=== PATIENT | male | born 1995 | race African-American/Black ===

== ENCOUNTER 2016-11-13 13:07 | Emergency (ER) | payer SELFPAY | END 2016-11-13 14:40 | disposition left against medical advice (07) | LOC: ERS 13:07 | DX: Z53.21 Procedure and treatment not carried out due to patient leaving prior to being seen by health care provider (principal) ==

== ENCOUNTER 2017-08-23 01:09 | Emergency (ER) | payer SELFPAY ==
--- NOTE | 2017-08-23 08:04 | RAD ---
RIGHT ANKLE 3 VIEWS: Date: 08/23/17 HISTORY: Right ankle pain. FINDINGS/IMPRESSION: The ankle mortise is maintained. No fracture, dislocation, or bony destruction is identified. POS: [facility]
== END 2017-08-23 02:40 | disposition home or self-care (01) ==
LOC: ERS 01:09
DX: M25.571 Pain in right ankle and joints of right foot (principal); F17.210 Nicotine dependence, cigarettes, uncomplicated

== ENCOUNTER 2017-10-25 22:01 | Emergency (ER) | payer SELFPAY ==
--- NOTE | 2017-10-25 22:30 | RAD ---
SINGLE VIEW OF THE CHEST: 10/25/17 COMPARISON: None. HISTORY: Left sided chest pain. FINDINGS: Single view of the chest shows a normal sized cardiomediastinal silhouette. There is no evidence of c onsolidation, mass, or pleural effusion. The bones are unremarkable. IMPRESSION: No evidence of acute cardiopulmonary disease. POS: [facility]
[2017-10-25 23:44] LABS: #Basophils 0.1 thou/uL (0.0-0.2); #Eosinphils 0.2 thou/uL (0.0-0.7); #Lymphocytes 3.9 thou/uL (1.20-3.40); #Monocytes 1.2 thou/uL (0.11-0.59); #Neutrophils 10.3 thou/uL (1.40-6.50); %Basophils 0.7 % (0.0-1.0); %Monocytes 7.7 % (0.0-10.0); %Neutrophils 65.6 % (42.0-75.0); Hemoglobin 15.2 g/dL (14.0-18.0); Mean Corpuscular HGB CONC 34.3 g/dL (32.0-36.0); Mean Corpuscular Volume 93.3 fL (78.0-98.0); Mean Platelet Volume 8.1 fL (7.4-10.4); Platelet Count 342 thou/uL (130-400); Red Blood Cell (RBC) Count 4.75 mill/uL (4.70-6.10); White Blood Cell (WBC) Count 15.7 thou/uL (4.8-10.8)
[2017-10-26 00:06] LABS: ALT (SGPT) 21 U/L (8-55); AST (SGOT) 26 U/L (5-34); Albumin 4.6 g/dL (3.5-5.0); Alkaline Phosphatase 139 U/L (40-150); Anion Gap 16 mmol/L (10-20); BUN (Urea Nitrogen) 10 mg/dL (8.9-20.6); Bilirubin, Total 0.6 mg/dL (0.2-1.2); CK (CPK) 443 U/L (30-200); Calc. Creatinine Clearance 0 mL/min (70-130); Calcium 9.6 mg/dL (7.8-10.44); Carbon Dioxide 20 mmol/L (22-29); Chloride 105 mmol/L (98-107); Estimated GFR-MDRD Greater than 90; Globulin 4.2 g/dL (2.4-3.5); Glucose 79 mg/dL (70-105); Lipase 20 U/L (8-78); Potassium 3.8 mmol/L (3.5-5.1); Protein, Total 8.8 g/dL (6.0-8.3); Sodium 137 mmol/L (136-145)
[2017-10-26 00:09] LABS: Troponin I Less than 0.010 ng/mL (< 0.028)
[2017-10-26] MEDS ORDERED: Mag-Al 1200 mg/1200 mg/30 ML UDCUP ONE (00:23)
[2017-10-26] MEDS ORDERED: Ketorolac Tromethamine 30 MG/ML VIAL ONE (00:23)
[2017-10-26] MEDS ORDERED: Lidocaine Viscous Sol 2% 15 ml UD Cup ONE (00:23)
== END 2017-10-26 01:32 | disposition left against medical advice (07) ==
LOC: ERS 22:01
DX: R07.89 Other chest pain (principal); F17.210 Nicotine dependence, cigarettes, uncomplicated
CPT/HCPCS: 36415; 71045; 80053; 82550; 82553; 83690; 84484; 85025; 93005; 96372; J1885

== ENCOUNTER 2018-02-17 12:47 | Emergency (ER) | payer SELFPAY ==
[2018-02-17] MEDS ORDERED: Ketorolac Tromethamine 60 MG/2 ML VIAL ONE (14:01)
[2018-02-17] MEDS ORDERED: Ketorolac Tromethamine 30 MG/ML VIAL ONE (15:29)
--- NOTE | 2018-02-17 16:07 | RAD ---
RIGHT SHOULDER THREE VIEWS: 02/17/18 HISTORY: Pain. Injury. COMPARISON: None. FINDINGS: Glenohumeral joint space is preserved. No fracture or dislocation. The visualized right ribs are unre markable. IMPRESSION: No fracture or dislocation. POS: [facility]
--- NOTE | 2018-02-17 16:08 | RAD ---
THREE VIEWS THORACIC SPINE: 02/17/18 HISTORY: Pain after injury. FINDINGS: There is no evidence of a fracture or subluxation involving the thoracic spine. Vertebral body height s are within normal limits. IMPRESSION: No fracture or subluxation is seen involving the thoracic spine. POS: [facility]
== END 2018-02-17 15:42 | disposition home or self-care (01) ==
LOC: ERS 12:47
DX: S43.401A Unspecified sprain of right shoulder joint, initial encounter (principal); F17.210 Nicotine dependence, cigarettes, uncomplicated; Z71.6 Tobacco abuse counseling; W19.XXXA Unspecified fall, initial encounter
CPT/HCPCS: 72072; 96372; 99406; J1885

== ENCOUNTER 2018-09-14 20:40 | Emergency (ER) | payer SELFPAY | END 2018-09-14 21:13 | disposition home or self-care (01) | LOC: ERS 20:40 | DX: B86 Scabies (principal); F17.210 Nicotine dependence, cigarettes, uncomplicated | CPT/HCPCS: 99282 ==

== ENCOUNTER 2018-11-07 21:02 | Emergency (ER) | payer SELFPAY ==
--- NOTE | 2018-11-07 21:35 | RAD ---
Exam:Right shoulder 3 views HISTORY: Pain COMPARISON: 02/17/2018 FINDINGS: Glenohumeral joint space is preserved. Acromioclavicular and coracoclavicular distances are maintained. No fracture or dislocation. Visualized right ribs are intact IMPRESSION: No fracture or dislocation.
== END 2018-11-07 21:54 | disposition home or self-care (01) ==
LOC: ERS 21:02
DX: S43.401A Unspecified sprain of right shoulder joint, initial encounter (principal); F17.210 Nicotine dependence, cigarettes, uncomplicated; X58.XXXA Exposure to other specified factors, initial encounter

== ENCOUNTER 2018-11-09 10:46 | Emergency (ER) | payer SELFPAY | END 2018-11-09 11:25 | disposition home or self-care (01) | LOC: ERS 10:46 | DX: M25.511 Pain in right shoulder (principal); F17.210 Nicotine dependence, cigarettes, uncomplicated; Z79.899 Other long term (current) drug therapy | CPT/HCPCS: 99283 ==

== ENCOUNTER 2018-11-17 12:54 | Emergency (ER) | payer SELFPAY | END 2018-11-17 13:41 | disposition home or self-care (01) | LOC: ERS 12:54 | DX: R11.0 Nausea (principal); F17.210 Nicotine dependence, cigarettes, uncomplicated; Z79.899 Other long term (current) drug therapy | CPT/HCPCS: 99282 ==

== ENCOUNTER 2018-11-24 18:32 | Emergency (ER) | payer SELFPAY | END 2018-11-24 18:50 | disposition home or self-care (01) | LOC: ERS 18:32 | DX: R25.2 Cramp and spasm (principal); F17.210 Nicotine dependence, cigarettes, uncomplicated | CPT/HCPCS: 99281 ==

== ENCOUNTER 2019-02-05 11:25 | Emergency (ER) | payer OTHER, SELFPAY | END 2019-02-05 19:37 | disposition home or self-care (01) | LOC: ERS 11:25 | DX: R50.9 Fever, unspecified (principal); R11.2 Nausea with vomiting, unspecified; F17.210 Nicotine dependence, cigarettes, uncomplicated | CPT/HCPCS: 87804; 99284 ==

== ENCOUNTER 2019-04-03 11:57 | Emergency (ER) | payer SELFPAY ==
[2019-04-03] MEDS ORDERED: Ibuprofen 800 MG TAB ONE (12:18)
[2019-04-03] MEDS ORDERED: Acetaminophen 500 MG TAB ONE (12:18)
== END 2019-04-03 12:26 | disposition left against medical advice (07) ==
LOC: ERS 11:57
DX: Z53.21 Procedure and treatment not carried out due to patient leaving prior to being seen by health care provider (principal)
CPT/HCPCS: 87081; 87430; 87804

== ENCOUNTER 2020-03-04 07:10 | Emergency (ER) | payer SELFPAY ==
[2020-03-04] MEDS ORDERED: Ondansetron PF 4 MG/2 ML Vial ONE (07:22)
[2020-03-04] MEDS ORDERED: Promethazine HCl 25 MG/ML VIAL ONE (07:41)
[2020-03-04] MEDS ORDERED: Ketorolac Tromethamine 30 MG/ML VIAL ONE (07:41)
[2020-03-04 07:55] LABS: Hemoglobin 15.4 g/dL (14.0-18.0); Mean Corpuscular HGB CONC 34.3 g/dL (32.0-36.0); Mean Corpuscular Hemoglobin 31.4 pg (27.0-31.0); Mean Corpuscular Volume 91.5 fL (78.0-98.0); Mean Platelet Volume 8.1 fL (7.4-10.4); Platelet Count 338 thou/uL (130-400); RBC Distribution Width 12.9 % (11.5-14.5); Red Blood Cell (RBC) Count 4.92 mill/uL (4.70-6.10); White Blood Cell (WBC) Count 25.5 thou/uL (4.8-10.8)
[2020-03-04 08:06] LABS: ALT (SGPT) 19 U/L (8-55); AST (SGOT) 19 U/L (5-34); Albumin 4.3 g/dL (3.5-5.0); Alkaline Phosphatase 116 U/L (40-110); Anion Gap 20 mmol/L (10-20); BUN (Urea Nitrogen) 17 mg/dL (8.9-20.6); Calc. Creatinine Clearance 0 mL/min (70-130); Calcium 9.2 mg/dL (7.8-10.44); Carbon Dioxide 18 mmol/L (22-29); Chloride 103 mmol/L (98-107); Glucose 97 mg/dL (70-105); Lipase 18 U/L (8-78); Potassium 3.7 mmol/L (3.5-5.1); Protein, Total 8.3 g/dL (6.0-8.3); Sodium 137 mmol/L (136-145)
--- NOTE | 2020-03-04 08:11 | CT ---
CT ABDOMEN AND PELVIS WITH IV CONTRAST 03/04/2020 CLINICAL INFORMATION: Abdominal pain and vomiting. Abdominal pain started in lower abdomen and is now more generalized. COMPARISON: 01/03/2016 Technique: Multiple contiguous axial CT images are obtained through the abdomen and pelvis with IV contrast. Cor onal reformatted images are provided. FINDINGS: Lower Chest: Lung bases are clear. Vessels: Abdominal aorta is normal in caliber. Abdomen: Portal vein:Patent Gallbladder: Within normal limits for CT imaging. Liver: There is a vague area of enhancement seen in the medial segment of the left hepatic lobe measu ring 2.1 cm. This is difficult to further characterize on this exam. This does not visualized on prior exam. Spleen: within normal limits. Pancreas: within normal limits. Adrenals: within normal limits. Kidneys: within normal limits. Bowel: Normal caliber. Appendix: Large appendicolith is seen in the proximal appendix which was also seen on prior exam. The appendix is otherwise normal in caliber without periappendiceal inflammatory changes seen. Peritoneum: No ascites or free air; no fluid collection. Mesentery and Retroperitoneum: No enlarged mesenteric or retroperitoneal lymph nodes. Abdominal Wall: within normal limits. Pelvis: Reproductive Organs: No pelvic masses. Bladder: within normal limits. Bones: No suspicious lytic or sclerotic osseous lesions. IMPRESSION: 1. Vague ill-defined area of enhancement in the medial segment left hepatic lobe. Follow-up CT abdome n with and without IV contrast following hepatic mass protocol is recommended for further evaluation. This was not visualized on study in 2015. 2. No acute findings in the abdomen or pelvis.
[2020-03-04 08:42] LABS: Band 3 % (5-11); Lymphocytes 11 % (21-51); MDiff Complete? YES; Monocytes 4 % (0-10); Neutrophil 81 % (42-75); Platelet Morphology Comment Appears Adequate; RBC Morphology Normal; Reactive Lymphocytes 1 % (0-10)
[2020-03-04] MEDS ORDERED: Iopamidol-370 76% 500 ML 1 ML ONE (13:53)
== END 2020-03-04 09:25 | disposition home or self-care (01) ==
LOC: ERS 07:10
DX: R11.2 Nausea with vomiting, unspecified (principal); R10.9 Unspecified abdominal pain
CPT/HCPCS: 36415; 74177; 80053; 83690; 85025; 96365; 96375; J1885; J2405; J2550; Q9967

== ENCOUNTER 2022-01-11 13:38 | Emergency (ER) | payer SELFPAY ==
[2022-01-11 16:38] LABS: SARS-CoV-2 NAA Rapid Test Not Detected (NotDetected)
== END 2022-01-11 16:59 | disposition home or self-care (01) ==
LOC: ERS 13:38
DX: H66.91 Otitis media, unspecified, right ear (principal); F17.210 Nicotine dependence, cigarettes, uncomplicated; Z20.822 Contact with and (suspected) exposure to COVID-19
CPT/HCPCS: 99283

== ENCOUNTER 2022-06-17 09:37 | Emergency (ER) | payer SELFPAY | END 2022-06-17 11:58 | disposition home or self-care (01) | LOC: ERS 09:37 | DX: J06.9 Acute upper respiratory infection, unspecified (principal); Z20.822 Contact with and (suspected) exposure to COVID-19; Z87.891 Personal history of nicotine dependence | CPT/HCPCS: 99283; U0003; U0005 ==

== ENCOUNTER 2023-02-02 21:21 | Emergency (ER) | payer BC, SELFPAY ==
[2023-02-02] MEDS ORDERED: Ketorolac Tromethamine 30 MG/ML VIAL ONE (22:16)
== END 2023-02-02 22:35 | disposition home or self-care (01) ==
LOC: ERS 21:21
DX: H66.001 Acute suppurative otitis media without spontaneous rupture of ear drum, right ear (principal); F17.210 Nicotine dependence, cigarettes, uncomplicated
CPT/HCPCS: 96372; 99282; J1885

== ENCOUNTER 2023-04-19 07:23 | Inpatient (IN) | payer BC, MEDICAID, SELFPAY ==
[2023-04-19] MEDS ORDERED: Sodium Chloride 0.9% 100 ML ONE (07:37)
[2023-04-19] MEDS ORDERED: Morphine 4 MG/ML VIAL ONE (07:37)
[2023-04-19] MEDS ORDERED: Bupivacaine PF 0.5% 30 ML VIAL ONE (07:37)
[2023-04-19] MEDS ORDERED: Ondansetron PF 4 MG/2 ML Vial ONE ×2 (07:37→13:18)
[2023-04-19] MEDS ORDERED: CEFAZOLIN 2 GM VIAL ONE (07:37)
[2023-04-19] MEDS ORDERED: Boostrix 0.5 ML (Tdap) VIAL (>/=7 yrs of age) ONE (07:56)
[2023-04-19 08:01] LABS: #Basophils 0.1 thou/uL (0.0-0.2); #Eosinphils 0.1 thou/uL (0.0-0.7); #Neutrophils 8.3 thou/uL (1.40-6.50); %Basophils 0.4 % (0.0-1.0); %Eosinophils 0.9 % (0.0-10.0); %Lymphocytes 29.5 % (21.0-51.0); %Monocytes 7.6 % (0.0-10.0); %Neutrophils 60.6 % (42.0-75.0); Hematocrit 43.9 % (42.0-52.0); Hemoglobin 14.5 g/dL (14.0-18.0); Mean Corpuscular Hemoglobin 30.1 pg (27.0-31.0); Mean Corpuscular Volume 91.3 fl (78.0-98.0); Mean Platelet Volume 10.3 fL (7.4-10.4); Platelet Count 271 10x3/uL (130-400); RBC Distribution Width 14.3 % (11.5-14.5); Red Blood Cell (RBC) Count 4.81 mill/uL (4.70-6.10); White Blood Cell (WBC) Count 13.8 10x3/uL (4.8-10.8)
[2023-04-19 08:13] LABS: ALT (SGPT) 31 U/L (8-55); AST (SGOT) 20 U/L (5-34); Albumin 3.7 g/dL (3.5-5.0); Alkaline Phosphatase 94 U/L (40-110); Anion Gap 11 mmol/L (10-20); BUN (Urea Nitrogen) 15 mg/dL (8.9-20.6); Bilirubin, Total 0.5 mg/dL (0.2-1.2); Calc. Creatinine Clearance 0 mL/min (70-130); Calcium 8.8 mg/dL (7.8-10.44); Carbon Dioxide 24 mmol/L (22-29); Chloride 107 mmol/L (98-107); Estimated GFR 120; Globulin 2.7 g/dL (2.4-3.5); Glucose 102 mg/dL (70-105); Protein, Total 6.4 g/dL (6.0-8.3); Sodium 138 mmol/L (136-145)
[2023-04-19] MEDS ORDERED: Gentamicin 80 MG/2 ML VIAL ONE (08:54)
[2023-04-19] MEDS ORDERED: Vancomycin 1 GM VIAL ONE (12:56)
[2023-04-19] MEDS ORDERED: Bacitracin Zinc Ointment 30 gm TUBE ONE (12:56)
[2023-04-19] MEDS ORDERED: fentaNYL 50 mcg/mL 1 mL Vial ONE ×3 (13:07→15:11)
[2023-04-19] MEDS ORDERED: SUCCINYLCHOLINE/SOD CL,ISO/PF 200 MG/10 ML SYRINGE FS ONE (13:18)
[2023-04-19] MEDS ORDERED: Lidocaine 2% PF 5 ML VIAL ONE (13:18)
[2023-04-19] MEDS ORDERED: Dexamethasone 20 MG/5 ML VIAL ONE (13:18)
[2023-04-19] MEDS ORDERED: fentaNYL PF 100 MCG/2 ML SYRINGE ONE (13:18)
[2023-04-19] MEDS ORDERED: Rocuronium Bromide 10 MG/ML (10ML VIAL) ONE (13:18)
[2023-04-19] MEDS ORDERED: PROPOFOL 20 ML ONE (13:18)
[2023-04-19] MEDS ORDERED: CEFAZOLIN 1 GM VIAL ONE (13:36)
[2023-04-19] MEDS ORDERED: SUGAMMADEX SODIUM 200 MG/2 ML VIAL ONE (14:17)
[2023-04-19] MEDS ORDERED: Acetaminophen 325 MG TAB PO PRN (14:53)
[2023-04-19] MEDS ORDERED: Ondansetron PF 4 MG/2 ML Vial SLOW IVP PRN (14:53)
[2023-04-19] MEDS ORDERED: traMADol HCl 50 MG TAB PO PRN (14:53)
[2023-04-19] MEDS ORDERED: Communication Order-Pharmacy FS SCH (15:00)
[2023-04-19] MEDS: TETANUS, DIPHTHERIA TOX,ADULT (TDVAX) 0.5 ML VIAL IM ONE (15:32)
[2023-04-19 15:40] VITALS: BMI 35.9
[2023-04-19] MEDS: FLU VACC QS2023-24(6MOS UP)/PF 60 MCG/0.5 ML SYRINGE IM ONE (16:04)
[2023-04-19] MEDS: Hetastarch 6% 500 ML 500 ML IVPB SCH (17:09)
[2023-04-19] MEDS: Aspirin 81 mg Enteric Coated Tablet PO SCH (21:13)
[2023-04-19] MEDS: CEFAZOLIN 2 GM in Sodium Chloride 0.9% 100 ML IVPB SCH (21:13)
[2023-04-20] MEDS: Morphine 4 MG/ML VIAL SLOW IVP PRN (05:53)
[2023-04-20 07:24] LABS: #Monocytes 0.8 thou/uL (0.11-0.59); #Neutrophils 11.9 thou/uL (1.40-6.50); %Basophils 0.1 % (0.0-1.0); %Lymphocytes 9.1 % (21.0-51.0); %Monocytes 5.8 % (0.0-10.0); %Neutrophils 84.6 % (42.0-75.0); Hematocrit 35.7 % (42.0-52.0); Hemoglobin 11.7 g/dL (14.0-18.0); Mean Corpuscular HGB CONC 32.8 g/dL (32.0-36.0); Mean Corpuscular Hemoglobin 30.2 pg (27.0-31.0); Mean Platelet Volume 10.2 fL (7.4-10.4); Platelet Count 245 10x3/uL (130-400); RBC Distribution Width 14.4 % (11.5-14.5); Red Blood Cell (RBC) Count 3.88 mill/uL (4.70-6.10)
[2023-04-20] MEDS: HYDROcodone/Acetaminophen 10/325 mg Tablet PO PRN (12:02)
[2023-04-20] MEDS ORDERED: Bacitracin Zinc Ointment 30 gm TUBE ONE (12:29)
[2023-04-20] MEDS ORDERED: Thrombin 5000 UNITS/5 ML VIAL ONE (12:29)
[2023-04-20] MEDS ORDERED: Bupivacaine PF 0.5% 30 ML VIAL ONE (12:29)
[2023-04-20] MEDS ORDERED: CEFAZOLIN 2 GM VIAL ONE (13:05)
[2023-04-20] MEDS ORDERED: Sodium Chloride 0.9% 100 ML ONE (13:05)
[2023-04-20] MEDS ORDERED: Famotidine/PF 20 mg/2ml Vial ONE (13:06)
[2023-04-20] MEDS ORDERED: Lidocaine 1% PF 5 ML VIAL ONE (13:11)
[2023-04-20] MEDS ORDERED: Rocuronium Bromide 10 MG/ML (10ML VIAL) ONE (13:11)
[2023-04-20] MEDS ORDERED: fentaNYL PF 100 MCG/2 ML SYRINGE ONE (13:11)
[2023-04-20] MEDS ORDERED: PROPOFOL 20 ML ONE (13:11)
[2023-04-20] MEDS ORDERED: Meperidine HCl/PF 25 MG (1 mL) VIAL IM PRN (13:25)
[2023-04-20] MEDS ORDERED: Dexamethasone 4 mg/ml Vial ONE (13:39)
[2023-04-20] MEDS ORDERED: Lidocaine 2% PF 5 ML VIAL ONE (15:15)
[2023-04-20] MEDS ORDERED: Heparin 10,000 UNITS/ 10 ML VIAL ONE ×2 (15:15→16:49)
[2023-04-20] MEDS ORDERED: Hetastarch 6% 500 ML 500 ML ONE (15:15)
[2023-04-20] MEDS ORDERED: Ondansetron HCl/PF 4 MG/2 ML Vial IVP PRN (15:29)
[2023-04-20] MEDS ORDERED: HYDROmorphone 2 MG/ML VIAL SLOW IVP PRN (15:29)
[2023-04-20] MEDS ORDERED: Meperidine HCl/PF 25 MG/ML VIAL SLOW IVP PRN (15:29)
[2023-04-20] MEDS ORDERED: Promethazine HCl 25 MG/ML VIAL IM PRN (15:29)
[2023-04-20] MEDS ORDERED: Morphine Sulfate 2 MG/ML SYRINGE SLOW IVP PRN (15:29)
[2023-04-20] MEDS ORDERED: HYDROmorphone 2 MG/ML VIAL ONE (16:43)
[2023-04-20] MEDS ORDERED: Heparin 5,000 UNITS/ML VIAL ONE (17:36)
[2023-04-20] MEDS ORDERED: Mineral Oil Sterile 10 ML VIAL ONE (17:55)
[2023-04-20] MEDS ORDERED: CEFAZOLIN 1 GM VIAL ONE ×2 (18:06)
[2023-04-20 18:22] LABS: PTT Greater than 250.0 sec (22.9-36.1)
[2023-04-20] MEDS ORDERED: Glycopyrrolate 0.2 MG/ML 5 ML SYRINGE ONE (18:34)
[2023-04-20] MEDS ORDERED: Dexamethasone 20 MG/5 ML VIAL ONE (18:34)
[2023-04-20] MEDS ORDERED: NEOSTIGMINE 3 MG/3 ML SYR 3 MG/3 ML SYRINGE ONE (18:34)
[2023-04-20] MEDS ORDERED: Ondansetron PF 4 MG/2 ML Vial ONE (18:34)
[2023-04-20] MEDS ORDERED: Ketorolac Tromethamine 30 MG (1 mL) VIAL ONE (19:01)
[2023-04-20] MEDS ORDERED: fentaNYL 50 mcg/mL 1 mL Vial ONE ×2 (19:37→19:50)
[2023-04-20] MEDS ORDERED: Morphine 4 MG/ML VIAL ONE (20:19)
[2023-04-21 06:23] LABS: #Monocytes 1.2 thou/uL (0.11-0.59); #Neutrophils 16.7 thou/uL (1.40-6.50); %Basophils 0.1 % (0.0-1.0); %Lymphocytes 6.3 % (21.0-51.0); %Monocytes 6.4 % (0.0-10.0); %Neutrophils 86.5 % (42.0-75.0); Hematocrit 36.7 % (42.0-52.0); Hemoglobin 12.1 g/dL (14.0-18.0); Mean Corpuscular Hemoglobin 30.3 pg (27.0-31.0); Mean Corpuscular Volume 91.8 fl (78.0-98.0); Mean Platelet Volume 10.8 fL (7.4-10.4); Platelet Count 246 10x3/uL (130-400); RBC Distribution Width 14.6 % (11.5-14.5); White Blood Cell (WBC) Count 19.3 10x3/uL (4.8-10.8)
[2023-04-21 06:33] LABS: INR-International Normal Ratio 1.1; PTT 24.4 sec (22.9-36.1); Prothrombin Time 14.6 sec (12.0-14.7)
[2023-04-21 06:38] LABS: Anion Gap 14 mmol/L (10-20); BUN (Urea Nitrogen) 12 mg/dL (8.9-20.6); Calc. Creatinine Clearance 223 mL/min (70-130); Calcium 7.9 mg/dL (7.8-10.44); Carbon Dioxide 21 mmol/L (22-29); Chloride 107 mmol/L (98-107); Estimated GFR 124; Glucose 103 mg/dL (70-105); Potassium 4.2 mmol/L (3.5-5.1); Sodium 138 mmol/L (136-145)
[2023-04-21 20:42] LABS: #Monocytes 1.5 thou/uL (0.11-0.59); #Neutrophils 15.1 thou/uL (1.40-6.50); %Basophils 0.2 % (0.0-1.0); %Eosinophils 0.1 % (0.0-10.0); %Lymphocytes 13.9 % (21.0-51.0); %Monocytes 7.6 % (0.0-10.0); %Neutrophils 77.3 % (42.0-75.0); Hematocrit 37.5 % (42.0-52.0); Hemoglobin 12.1 g/dL (14.0-18.0); Mean Corpuscular HGB CONC 32.3 g/dL (32.0-36.0); Mean Corpuscular Hemoglobin 30.1 pg (27.0-31.0); Mean Corpuscular Volume 93.3 fl (78.0-98.0); Mean Platelet Volume 10.4 fL (7.4-10.4); Platelet Count 291 10x3/uL (130-400); RBC Distribution Width 14.6 % (11.5-14.5); Red Blood Cell (RBC) Count 4.02 mill/uL (4.70-6.10); White Blood Cell (WBC) Count 19.5 10x3/uL (4.8-10.8)
[2023-04-22 04:55] LABS: #Monocytes 1.3 thou/uL (0.11-0.59); #Neutrophils 9.9 thou/uL (1.40-6.50); %Basophils 0.2 % (0.0-1.0); %Eosinophils 0.3 % (0.0-10.0); %Lymphocytes 23.3 % (21.0-51.0); %Neutrophils 66.4 % (42.0-75.0); Hematocrit 32.9 % (42.0-52.0); Mean Corpuscular HGB CONC 33.4 g/dL (32.0-36.0); Mean Corpuscular Hemoglobin 31.3 pg (27.0-31.0); Mean Corpuscular Volume 93.7 fl (78.0-98.0); Mean Platelet Volume 10.4 fL (7.4-10.4); Platelet Count 248 10x3/uL (130-400); RBC Distribution Width 14.6 % (11.5-14.5); Red Blood Cell (RBC) Count 3.51 mill/uL (4.70-6.10); White Blood Cell (WBC) Count 14.9 10x3/uL (4.8-10.8)
[2023-04-22] MEDS: Aspirin 81 mg Enteric Coated Tablet PO SCH (08:14)
[2023-04-22 08:45] VITALS: BP 121/76; TEMP 97.9
[2023-04-22 13:36] LABS: #Basophils 0.1 thou/uL (0.0-0.2); #Eosinphils 0.1 thou/uL (0.0-0.7); #Monocytes 1.1 thou/uL (0.11-0.59); #Neutrophils 11.3 thou/uL (1.40-6.50); %Basophils 0.4 % (0.0-1.0); %Eosinophils 0.5 % (0.0-10.0); %Lymphocytes 25.4 % (21.0-51.0); %Monocytes 6.4 % (0.0-10.0); %Neutrophils 66.7 % (42.0-75.0); Hematocrit 36.7 % (42.0-52.0); Hemoglobin 12.2 g/dL (14.0-18.0); Mean Corpuscular HGB CONC 33.2 g/dL (32.0-36.0); Mean Corpuscular Hemoglobin 30.9 pg (27.0-31.0); Mean Corpuscular Volume 92.9 fl (78.0-98.0); Platelet Count 294 10x3/uL (130-400); RBC Distribution Width 14.5 % (11.5-14.5); Red Blood Cell (RBC) Count 3.95 mill/uL (4.70-6.10)
== END 2023-04-22 14:00 | disposition home or self-care (01) | DRG 578 ==
LOC: ERS 07:23 → T4-A 10:43
PROVIDERS: ADMIT Orthopaedic Surgery Hand Surgery; ATTEND Orthopaedic Surgery Hand Surgery
PROC: 0PBV0ZZ Excision of Left Finger Phalanx, Open Approach (ICD-10-PCS; principal; 2023-04-19)
PROC: 0RGX07Z Fusion of Left Finger Phalangeal Joint with Autologous Tissue Substitute, Open Approach (ICD-10-PCS; 2023-04-20)
PROC: 0HRGXK3 Replacement of Left Hand Skin with Nonautologous Tissue Substitute, Full Thickness, External Approach (ICD-10-PCS; 2023-04-20)
PROC: 01Q60ZZ Repair Radial Nerve, Open Approach (ICD-10-PCS; 2023-04-20)
PROC: 03QC0ZZ Repair Left Radial Artery, Open Approach (ICD-10-PCS; 2023-04-20)
DX: S61.235A Puncture wound without foreign body of left ring finger without damage to nail, initial encounter (principal); S64.493A Injury of digital nerve of left middle finger, initial encounter; S61.233A Puncture wound without foreign body of left middle finger without damage to nail, initial encounter; W32.0XXA Accidental handgun discharge, initial encounter
CPT/HCPCS: 36415; 36416; 80048; 80053; 85025; 85610; 85730; 86850; 86900; 86901; 90715; 96361; 96365; 96367; 96375; C1713; C1894; G0390; J0665; J0690; J1100; J1170; J1580; J1644; J1885; J2001; J2270; J2405; J2704; J3010; J3370; J3490; Q4104; S0028

== ENCOUNTER 2023-07-28 10:58 | Outpatient (CLI) | payer OTHER ==
[2023-07-28 13:08] LABS: #Basophils 0.05 10x3/uL (0.0-0.2); #Eosinphils 0.08 10x3/uL (0.0-0.5); #Monocytes 0.86 10x3/uL (0.0-1.1); #Neutrophils 5.78 10x3/uL (1.5-8.4); %Basophils 0.5 % (0.0-2.0); %Eosinophils 0.9 % (0.0-6.0); %Lymphocytes 25.9 % (18.0-47.0); %Monocytes 9.3 % (0.0-10.0); %Neutrophils 62.9 % (40.0-75.0); Hematocrit 42.6 % (38.8-50.0); Hemoglobin 14.4 g/dL (13.5-17.5); Mean Corpuscular HGB CONC 33.8 g/dL (32.0-36.0); Mean Corpuscular Hemoglobin 30.3 pg (27.0-33.0); Mean Corpuscular Volume 89.5 fL (81.2-95.1); Mean Platelet Volume 11.4 fL (7.4-10.4); Platelet Count 326 10x3/uL (150-450); RBC Distribution Width 14.3 % (11.5-14.5); Red Blood Cell (RBC) Count 4.76 10x6/uL (4.32-5.72); White Blood Cell (WBC) Count 9.2 10x3/uL (3.5-10.5)
== END 2023-07-28 10:59 | disposition home or self-care (01) ==
LOC: LABBT 10:58
PROVIDERS: ATTEND Orthopaedic Surgery Hand Surgery
DX: Z01.812 Encounter for preprocedural laboratory examination (principal); S61.203A Unspecified open wound of left middle finger without damage to nail, initial encounter
CPT/HCPCS: 85025

== ENCOUNTER 2023-11-16 14:17 | Emergency (ER) | payer OTHER ==
[2023-11-16 15:58] LABS: #Basophils 0.05 10x3/uL (0.0-0.2); %Basophils 0.4 % (0.0-1.0); %Eosinophils 0.6 % (0.0-10.0); %Lymphocytes 20.4 % (21.0-51.0); %Monocytes 7.6 % (0.0-10.0); %Neutrophils 70.2 % (42.0-75.0); Hematocrit 42.3 % (42.0-52.0); Mean Corpuscular HGB CONC 33.1 g/dL (32.0-36.0); Mean Corpuscular Hemoglobin 30.4 pg (27.0-31.0); Mean Platelet Volume 10.2 fL (7.4-10.4); Platelet Count 348 10x3/uL (130-400); RBC Distribution Width 14.5 % (11.5-14.5)
[2023-11-16 16:12] LABS: ALT (SGPT) 19 U/L (8-55); AST (SGOT) 17 U/L (5-34); Alkaline Phosphatase 110 U/L (40-110); Anion Gap 14 mmol/L (10-20); BUN (Urea Nitrogen) 16 mg/dL (8.9-20.6); Bilirubin, Total 0.4 mg/dL (0.2-1.2); Calc. Creatinine Clearance 0 mL/min (70-130); Calcium 9.5 mg/dL (7.8-10.44); Carbon Dioxide 21 mmol/L (22-29); Chloride 108 mmol/L (98-107); Estimated GFR 95; Globulin 3.7 g/dL (2.4-3.5); Glucose 91 mg/dL (70-105); Potassium 3.9 mmol/L (3.5-5.1); Protein, Total 7.7 g/dL (6.0-8.3); Sodium 139 mmol/L (136-145)
[2023-11-16] MEDS ORDERED: Acetaminophen 500 MG TAB ONE (16:38)
== END 2023-11-16 17:22 | disposition home or self-care (01) ==
LOC: ERS 14:17
DX: M79.645 Pain in left finger(s) (principal); F17.210 Nicotine dependence, cigarettes, uncomplicated
CPT/HCPCS: 36415; 80053; 83605; 85025; 86141; 99283

== ENCOUNTER 2024-04-06 05:53 | Day surgery (SDC) | payer OTHER ==
[2024-04-05 08:22] VITALS: BMI 35.2
[2024-04-06] MEDS ORDERED: Midazolam HCl 2 mg/2 ml Vial ONE (08:48)
[2024-04-06] MEDS ORDERED: Bupivacaine PF 0.5% 30 ML VIAL ONE ×2 (08:56→09:45)
[2024-04-06] MEDS ORDERED: Bacitracin Zinc Ointment 30 gm TUBE ONE (08:56)
[2024-04-06] MEDS ORDERED: CEFAZOLIN 2 GM VIAL ONE (09:17)
[2024-04-06] MEDS ORDERED: PROPOFOL 200 MG/20 ML VIAL ONE (09:34)
[2024-04-06] MEDS ORDERED: Lidocaine 1% PF 5 ML VIAL ONE (09:34)
[2024-04-06] MEDS ORDERED: Ondansetron PF 4 MG/2 ML Vial ONE (09:34)
[2024-04-06] MEDS ORDERED: Ketorolac Tromethamine 30 MG (1 mL) VIAL ONE (11:57)
== END 2024-04-06 14:25 | disposition home or self-care (01) ==
LOC: SDC 05:53
PROVIDERS: ATTEND Orthopaedic Surgery Hand Surgery
PROC: 0X6T0Z2 Detachment at Left Ring Finger, Mid, Open Approach (ICD-10-PCS; principal; 2024-04-06)
DX: S62.63 Displaced fracture of distal phalanx of finger (principal); S62.625K Displaced fracture of middle phalanx of left ring finger, subsequent encounter for fracture with nonunion; F17.200 Nicotine dependence, unspecified, uncomplicated
CPT/HCPCS: J0665; J1885; J2250

== ENCOUNTER 2024-12-26 19:37 | Inpatient (IN) | payer OTHER ==
[~2024-12-26 19:37] MED LIST: Iopamidol-370 76% 500 ML MDV (1 ML CHARGE) ONE
[2024-12-26] MEDS ORDERED: Ondansetron PF 4 MG/2 ML Vial ONE (20:43)
[2024-12-26] MEDS ORDERED: Ketorolac Tromethamine 30 MG (1 mL) VIAL ONE (20:43)
[2024-12-26 21:13] LABS: ALT (SGPT) 25 U/L (Less than 45); AST (SGOT) 29 U/L (11-34); Albumin 4.3 g/dL (3.1-4.5); Alkaline Phosphatase 101 U/L (40-110); Anion Gap 15 mmol/L (10-20); BUN (Urea Nitrogen) 15 mg/dL (8.9-20.6); Bilirubin, Total 0.8 mg/dL (0.3-1.2); Calc. Creatinine Clearance 0 mL/min (70-130); Calcium 9.3 mg/dL (7.8-10.44); Carbon Dioxide 20 mmol/L (22-29); Chloride 104 mmol/L (98-107); Globulin 3.9 g/dL (2.4-3.5); Glucose 98 mg/dL (70-105); Lipase 23 U/L (8-78); Potassium 3.8 mmol/L (3.5-5.1); Sodium 135 mmol/L (136-145)
[2024-12-26 21:21] LABS: #Basophils Less than 0.03 10x3/uL (0.0-0.2); #Eosinophils 0.03 10x3/uL (0.0-0.7); #Monocytes 0.71 10x3/uL (0.11-0.59); #Neutrophils 13.58 10x3/uL (1.40-6.50); %Basophils 0.1 % (0.0-1.0); %Eosinophils 0.2 % (0.0-10.0); %Lymphocytes 3.5 % (21.0-51.0); %Monocytes 4.8 % (0.0-10.0); %Neutrophils 91.1 % (42.0-75.0); Hematocrit 43.0 % (42.0-52.0); Hemoglobin 14.2 g/dL (14.0-18.0); Mean Corpuscular Hemoglobin 29.3 pg (27.0-31.0); Mean Corpuscular Volume 88.7 fL (78.0-98.0); Platelet Count 319 10x3/uL (130-400); Red Blood Cell (RBC) Count 4.85 mill/uL (4.70-6.10); White Blood Cell (WBC) Count 14.91 10x3/uL (4.8-10.8)
[2024-12-26 22:30] LABS: Bacteria/HPF None Seen HPF (None Seen); Glucose, Urine (Dipstick) Normal (Negative); Leukocyte Negative Leu/uL (Negative); Protein, Urine (Dipstick) 10 mg/dL (Neg-Trace); RBC/HPF 0-3 HPF (0-3); WBC/HPF None Seen HPF (0-3)
[2024-12-26 22:32] LABS: Specific Gravity, Urine Greater than 1.036 (1.002-1.036)
[2024-12-26] MEDS ORDERED: Ondansetron PF 4 MG/2 ML Vial IVP PRN (22:40)
[2024-12-26] MEDS ORDERED: hydrALAZINE 20 MG/ML VIAL SLOW IVP PRN (22:40)
[2024-12-26] MEDS ORDERED: Acetaminophen 325 MG TAB PO PRN (22:40)
[2024-12-27 06:17] LABS: #Basophils Less than 0.03 10x3/uL (0.0-0.2); #Eosinophils 0.07 10x3/uL (0.0-0.7); #Monocytes 0.91 10x3/uL (0.11-0.59); #Neutrophils 6.76 10x3/uL (1.40-6.50); %Basophils 0.2 % (0.0-1.0); %Eosinophils 0.8 % (0.0-10.0); %Lymphocytes 9.2 % (21.0-51.0); %Monocytes 10.6 % (0.0-10.0); %Neutrophils 78.7 % (42.0-75.0); Hematocrit 39.8 % (42.0-52.0); Hemoglobin 13.4 g/dL (14.0-18.0); Mean Corpuscular Hemoglobin 29.7 pg (27.0-31.0); Mean Corpuscular Volume 88.2 fL (78.0-98.0); Platelet Count 260 10x3/uL (130-400); Red Blood Cell (RBC) Count 4.51 mill/uL (4.70-6.10); White Blood Cell (WBC) Count 8.59 10x3/uL (4.8-10.8)
[2024-12-27 06:38] LABS: Anion Gap 13 mmol/L (10-20); BUN (Urea Nitrogen) 16 mg/dL (8.9-20.6); Calc. Creatinine Clearance 0 mL/min (70-130); Calcium 8.3 mg/dL (7.8-10.44); Carbon Dioxide 21 mmol/L (22-29); Chloride 106 mmol/L (98-107); Glucose 96 mg/dL (70-105); Potassium 3.4 mmol/L (3.5-5.1); Sodium 137 mmol/L (136-145)
[2024-12-27 13:46] VITALS: BMI 36.5
[2024-12-27 18:26] VITALS: TEMP 98.1
[2024-12-27 21:25] VITALS: BP 121/82
== END 2024-12-27 22:55 | disposition home or self-care (01) | DRG 392 ==
LOC: ERS 19:37 → ERHOLD 22:48 → SURG B 12-27 09:14
PROVIDERS: ADMIT Surgery; ATTEND Surgery
DX: K52.9 Noninfective gastroenteritis and colitis, unspecified (principal); K35.80 Unspecified acute appendicitis; Z79.899 Other long term (current) drug therapy; F17.210 Nicotine dependence, cigarettes, uncomplicated
CPT/HCPCS: 74176; 74177; 80048; 80053; 81001; 83690; 85025; 96361; 96365; 96375; J1885; J2405; J2543; J7120; Q9967